=== PATIENT | female | born 1950 | race Caucasian/White ===

== ENCOUNTER → 2016-12-26 | Outpatient (CLI) | payer MEDICARE ==
--- NOTE | 2016-12-26 09:24 | US ---
EXAMINATION TYPE: US abdomen limited DATE OF EXAM: 12/26/2016 7:36 AM COMPARISON: NONE CLINICAL HISTORY: R10.11 RUQ Pain. 2 episodes within the past year with extreme RUQ pain EXAM MEASUREMENTS: Liver Length: 13.2 cm Gallbladder Wall: 0.7 cm CBD: 1.0 cm Right Kidney: 10.6 x 5.1 x 5.4 cm Pancreas: slightly obscured by bowel gas Liver: wnl Gallbladder: 1.8cm mobile stone seen with thickened wall. Wall echo shadow complex may be present diamond ggestive of acute cholecystitis. Evidence for sonographic Elizondo's sign: yes CBD: dilated Right Kidney: wnl IMPRESSION: 1. Findings suggestive for acute cholecystitis with cholelithiasis. Common bile duct is dilated at 1. 1 cm.
== END | disposition home or self-care (01) ==
LOC: RADUSWWP 07:13
PROVIDERS: ATTEND Family Medicine
DX: K80.00 Calculus of gallbladder with acute cholecystitis without obstruction (principal)
CPT/HCPCS: 76705

== ENCOUNTER → 2019-04-09 | Outpatient (CLI) | payer MEDICARE ==
--- NOTE | 2019-04-10 11:34 | MM ---
Reason for exam: screening (asymptomatic). Last mammogram was performed 2 years and 8 months ago. History: Patient is postmenopausal and has history of high-risk lesion on a previous biopsy at age 63. Benign excisional biopsy, January 2014. High risk left mammotome panel of the left breast, January 16, 2014. Took hormonal contraceptives for 1 year beginning at age 20. Took estrogen for 2 years beginning at age 43. Physical Findings: A clinical breast exam by your physician is recommended on an annual basis and results should be correlated with mammographic findings. MG 3D Screening Mammo W/Cad Bilateral CC and MLO view(s) were taken. Prior study comparison: August 24, 2016, bilateral MG 3d screening mammo w/cad. August 20, 2015, bilateral MG 3d screening mammo w/cad. There are scattered fibroglandular densities. Finding: There are typically benign vascular calcifications in the right breast. There is no discrete abnormality. ASSESSMENT: Benign, BI-RAD 2 RECOMMENDATION: Routine screening mammogram of both breasts in 1 year.
== END | disposition home or self-care (01) ==
LOC: RADMAMWWP 09:53
PROVIDERS: ATTEND Family Medicine
DX: Z12.31 Encounter for screening mammogram for malignant neoplasm of breast (principal)
CPT/HCPCS: 77063; 77067

== ENCOUNTER → 2020-04-06 | Outpatient (CLI) | payer MEDICARE ==
[~2020-04-06] MED LIST: REGADENOSON 0.4 MG/5 ML SYRINGE IV ONE
--- NOTE | 2020-04-06 15:17 | EST ---
EXERCISE STRESS AGE: 69 SEX: F HT: 67" WT: 198 lbs. PROTOCOL: Lexiscan Cardiolite STAGE: DURATION OF EXERCISE: HEART RATE REST: 60 BLOOD PRESSURE REST: 150/82 MAXIMUM HEART RATE ACHIEVED: 91 MAXIMUM BLOOD PRESSURE: 186/76 85% MPHR: 127 100% MPHR: 149 METS: INDICATIONS: Abnormal EKG. CLINICAL INFORMATION: Baseline rhythm is sinus mechanism rate of 60, normal axis and intervals, minor nonspecific ST-T wave changes. Baseline blood pressure 150/82 mmHg. Patient received injection of Lexiscan. Electrocardiograph monitoring revealed rate-related left bundle branch block. Cardiolite was injected per protocol. CONCLUSION: 1. Nondiagnostic electrocardiographic stress testing with rate-related left bundle branch block. 2. Nuclear images will be reported separately. MMODL / IJN: [id number] /
--- NOTE | 2020-04-06 17:00 | NM ---
EXAMINATION TYPE: NM stress lexiscan cardiolite DATE OF EXAM: 04/06/2020 COMPARISON: NONE HISTORY: TECHNIQUE: After the intravenous administration of 10.56 mCi Tc 99m Sestamibi - Cardiolite resting S PECT images acquired 45 minutes post injection. The patient received 0.4mg Lexiscan, 24.8 mCi Tc 99m Sestamibi - Stress images obtained [address] injection FINDINGS: There is diminished radiotracer accumulation along the anterior septal region. This is grea ter than expected for right ventricular insertion. Consider some prior infarct. This appears to be fi xed. Some dyskinesia of the distal septal wall is evident on Three-D reconstructed wall motion studie s. Ejection fraction of 57% is normal IMPRESSION: 1. There appears be a fixed defect along the septal wall with extension towards the anterior wall ext ending from the cardiac base to nearly the apex. Prior infarction should be considered. 2. Dyskinesia of the distal septal wall. 3. Normal ejection fraction
== END ==
LOC: RADNMMAIN 08:09
PROVIDERS: ATTEND Family Medicine
DX: I10 Essential (primary) hypertension (principal); R94.31 Abnormal electrocardiogram [ECG] [EKG]; I44.7 Left bundle-branch block, unspecified; G24.9 Dystonia, unspecified
CPT/HCPCS: 93017; 78452; A9500; J2785

== ENCOUNTER → 2021-01-03 | Outpatient (CLI) | payer MEDICARE ==
--- NOTE | 2021-01-05 09:57 | MM ---
Reason for exam: screening (asymptomatic). Last mammogram was performed 1 year and 9 months ago. History: Patient is postmenopausal and has history of high-risk lesion on a previous biopsy at age 63. Benign excisional biopsy, January 2014. High risk left mammotome panel of the left breast, January 16, 2014. Took hormonal contraceptives for 1 year beginning at age 20. Took estrogen for 2 years beginning at age 43. Physical Findings: A clinical breast exam by your physician is recommended on an annual basis and results should be correlated with mammographic findings. MG 3D Screening Mammo W/Cad Bilateral CC and MLO view(s) were taken. Prior study comparison: April 09, 2019, bilateral MG 3d screening mammo w/cad. August 24, 2016, bilateral MG 3d screening mammo w/cad. There are scattered fibroglandular densities. Post excisional changes left breast. Faint grouped calcifications anterior right breast appear to be increasing. ASSESSMENT: Incomplete: need additional imaging evaluation, BI-RAD 0 RECOMMENDATION: Special view mammogram of the right breast. (magnification) [facility] will attempt to contact patient to return for supplemental views.
== END | disposition home or self-care (01) ==
LOC: RADMAMWWP 15:47
PROVIDERS: ATTEND Family Medicine
DX: Z12.31 Encounter for screening mammogram for malignant neoplasm of breast (principal)
CPT/HCPCS: 77063; 77067

== ENCOUNTER → 2021-01-06 | Outpatient (CLI) | payer MEDICARE ==
--- NOTE | 2021-01-06 11:48 | MM ---
Reason for exam: additional evaluation requested from abnormal screening. Last mammogram was performed less than 1 month ago. History: Patient is postmenopausal and has history of high-risk lesion on a previous biopsy at age 63. Benign excisional biopsy, January 2014. High risk left mammotome panel of the left breast, January 16, 2014. Took hormonal contraceptives for 1 year beginning at age 20. Took estrogen for 2 years beginning at age 43. Physical Findings: Nurse did not find any significant physical abnormalities on exam. MG 3D Work Up W/Cad RT CC with magnification, LM with magnification, and LM view(s) were taken of the right breast. Prior study comparison: January 03, 2021, bilateral MG 3d screening mammo w/cad. April 09, 2019, bilateral MG 3d screening mammo w/cad. The breast tissue is heterogeneously dense. This may lower the sensitivity of mammography. Finding: There are fine, linear (casting), segmental calcifications in the upper outer quadrant, anterior position of the right breast, do not appear to cluster on the ML view. Short term follow up recommended. These results were verbally communicated with the patient and result sheet given to the patient on 01/06/21. ASSESSMENT: Probably benign, BI-RAD 3 RECOMMENDATION: Follow-up diagnostic mammogram of the right breast in 6 months. (magnification views)
== END | disposition home or self-care (01) ==
LOC: RADMAMWWP 09:51
PROVIDERS: ATTEND Family Medicine
DX: R92.1 Mammographic calcification found on diagnostic imaging of breast (principal)
CPT/HCPCS: 77065; G0279; 77061

== ENCOUNTER → 2021-08-15 | Outpatient (CLI) | payer MEDICARE ==
--- NOTE | 2021-08-16 11:48 | MM ---
Reason for exam: follow-up at short interval from prior study. Last mammogram was performed 7 months ago. History: Patient is postmenopausal and has history of high-risk lesion on a previous biopsy at age 63. Benign excisional biopsy, January 2014. High risk left mammotome panel of the left breast, January 16, 2014. Took hormonal contraceptives for 1 year beginning at age 20. Took estrogen for 2 years beginning at age 43. Physical Findings: Nurse did not find any significant physical abnormalities on exam. MG 3D Diag Mammo W/Cad RT CC, MLO, CC with magnification, and LM with magnification view(s) were taken of the right breast. Prior study comparison: January 06, 2021, right breast MG 3d work up w/cad RT. January 03, 2021, bilateral MG 3d screening mammo w/cad. There are scattered fibroglandular densities. Stable faint grouped calcifications 12 o'clock are unchanged for 6 months. Ongoing follow up recommended. These results were verbally communicated with the patient and result sheet given to the patient on 08/15/21. ASSESSMENT: Probably benign, BI-RAD 3 RECOMMENDATION: Follow-up diagnostic mammogram of both breasts in 6 months.
== END | disposition home or self-care (01) ==
LOC: RADMAMWWP 13:48
PROVIDERS: ATTEND Family Medicine
DX: R92.8 Other abnormal and inconclusive findings on diagnostic imaging of breast (principal); R92.1 Mammographic calcification found on diagnostic imaging of breast; Z78.0 Asymptomatic menopausal state
CPT/HCPCS: 77065; G0279; 77061